=== PATIENT | female | born 1930 | race Caucasian/White ===

== ENCOUNTER → 2016-05-04 | Outpatient (CLI) | payer MEDICARE ==
[~2016-05-04] MED LIST: AMLO5TAB2 PO; ASPI1TAB69 PO; ATEN25TA PO; LISI40TA PO; OXYC1TAB63 PO; SIMV40TA PO
[2016-05-04 15:37] LABS: AUTOMATED NEUTROPHIL # 5.3 TH/MM3 (1.8-7.7); BASOPHIL % 0.6 % (0.0-2.0); EOSINOPHIL # 0.1 TH/MM3 (0-0.4); EOSINOPHIL % 1.6 % (0.0-4.0); HEMATOCRIT 44.3 % (35.0-46.0); HEMO FLAGS DIFF FINAL; LYMPH % 21.9 % (9.0-44.0); LYMPHOCYTE # 1.8 TH/MM3 (1.0-4.8); MEAN CELL VOLUME 91.6 FL (80.0-100.0); MEAN CORPUSCULAR HEMOGLOBIN 31.1 PG (27.0-34.0); MEAN CORPUSCULAR HGB CONC 33.9 % (32.0-36.0); MONO % 11.5 % (0.0-8.0); NEUT % 64.4 % (16.0-70.0); PLATELET COUNT 249 TH/MM3 (150-450); RED BLOOD COUNT 4.83 MIL/MM3 (4.00-5.30); RED CELL DISTRIBUTION WIDTH 13.4 % (11.6-17.2); WHITE BLOOD COUNT 8.2 TH/MM3 (4.0-11.0)
[2016-05-04 16:13] LABS: APTT (PATIENT) 28.5 SEC (24.3-30.1); PROTHROMBIN TIME - PATIENT 10.9 SEC (9.8-11.6)
[2016-05-04 16:14] LABS: ALKALINE PHOSPHATASE 65 U/L (45-117); ALT (GPT) 29 U/L (10-53); ANION GAP 8 MEQ/L (5-15); AST (GOT) 29 U/L (15-37); BICARBONATE 28.2 MEQ/L (21.0-32.0); BLOOD UREA NITROGEN 11 MG/DL (7-18); CHLORIDE 105 MEQ/L (98-107); GLOMERULAR FILTRATION RATE 69 ML/MIN (>89); GLUCOSE,FASTING 104 MG/DL (74-99); POTASSIUM 3.8 MEQ/L (3.5-5.1); SODIUM (NA) 141 MEQ/L (136-145); TOTAL BILIRUBIN ADULT 0.5 MG/DL (0.2-1.0)
--- NOTE | 2016-05-04 16:56 | RADRPT ---
EXAM DATE/TIME: 05/04/2016 16:15 [place] COMPARISON: No previous studies available for comparison. INDICATIONS : Evaluate for pneumonia, pneumothorax or communicable disease. Pre op hysterectomy. MEDICAL HISTORY : None. SURGICAL HISTORY : Appendectomy. ENCOUNTER: Initial ACUITY: 1 day PAIN SCORE: 0/10 LOCATION: Bilateral chest FINDINGS: The exam demonstrates chronic interstitial changes. The lungs are otherwise clear. There is no pleura l effusion. The bony structures are intact. CONCLUSION: 1. Chronic interstitial changes. No acute abnormality. Nic Leonardo MD on May 04, 2016 at 16:38 Board Certified Radiologist. This report was verified electronically.
--- NOTE | 2016-05-05 12:27 | EKG ---
Date Performed: 05/04/2016 Time Performed: 15:45:42 PTAGE: 85 years EKG: Sinus rhythm ATYPICAL ECG NO PREVIOUS TRACING DOCTOR: Chandra Dave Interpretating Date/Time 05/05/2016 12:22:44
== END ==
LOC: CPRE 15:12
PROVIDERS: ATTEND Obstetrics & Gynecology Gynecologic Oncology
DX: Z01.812 Encounter for preprocedural laboratory examination (principal); Z01.811 Encounter for preprocedural respiratory examination; Z01.810 Encounter for preprocedural cardiovascular examination; N85.9 Noninflammatory disorder of uterus, unspecified
CPT/HCPCS: 36415; 71020; 80053; 82378; 85025; 85610; 85730; 86304; 93005

== ENCOUNTER 2016-05-10 05:48 | Inpatient (IN) | payer MEDICARE ==
[~2016-05-10] VITALS: Ht 154.9 cm; Wt 66.1 kg
[~2016-05-10 05:48] MED LIST changes: -OXYC1TAB63 PO
[2016-05-10] MEDS ORDERED: SODIUM CHLORID 0.9% 500 ML IV SCH (06:15)
[2016-05-10] MEDS ORDERED: INSULIN HUMAN REGULAR 1,000 UNITS/10 ML VIAL SQ PRN (06:15)
[2016-05-10] MEDS ORDERED: SODIUM CHLORIDE FLUSH PRN IVF (06:15)
[2016-05-10] MEDS ORDERED: HEPARIN SODIUM - SQ 10,000 UNITS/ML VIAL SQ SCH (06:15)
[2016-05-10] MEDS ORDERED: LACTATED RINGER'S 1000 ML IV SCH (06:15)
[2016-05-10] MEDS ORDERED: METOPROLOL TARTRATE 25 MG TAB PO PRN (06:15)
[2016-05-10 06:39] VITALS: BP 134/62; PULSE 75; RESP 18; TEMP 98.3; O2SAT 94
[2016-05-10] MEDS ORDERED: SODIUM CHLORIDE 0.9% INJ 100 ML ONE (06:42)
[2016-05-10] MEDS ORDERED: ceFAZolin INJ 1,000 MG VIAL ONE (06:42)
[2016-05-10] MEDS ORDERED: ceFAZolin 1,000 MG/NS 100 ML IV SCH ×2 (06:45)
[2016-05-10] MEDS: LIDOCAINE 1%/EPINEPHrine 1:100,000 SOLN 20 ML VIAL ONE ×2 (06:54→08:18)
[2016-05-10] MEDS ORDERED: METHYLENE BLUE 10 MG/ML VIAL ONE ×2 (06:55→06:57)
[2016-05-10] MEDS ORDERED: ACETAMINOPHEN 1000 MG/100 ML VIAL IV ONE (07:02)
[2016-05-10] MEDS ORDERED: SUGAMMADEX SODIUM 200 MG/2 ML VIAL IV PUSH ONE ×2 (07:03)
[2016-05-10] MEDS ORDERED: DEXAMETHASONE SOD PHOS 4 MG/ML VIAL ONE (07:21)
[2016-05-10] MEDS ORDERED: MIDAZOLAM HCL 2 MG/2 ML VIAL ONE (07:21)
[2016-05-10] MEDS ORDERED: ARTIFICIAL TEARS OPTH OINT 3.5 APPLIC/3.5 GM TUBO ONE (07:47)
[2016-05-10] MEDS ORDERED: SODIUM CHLORIDE FLUSH BID IVF SCH (09:00)
[2016-05-10] MEDS ORDERED: MORPHINE SULFATE 30 MG/30 ML PCA IV SCH (10:45)
[2016-05-10] MEDS ORDERED: ONDANSETRON HCL 4 MG/2 ML VIAL IVP PRN (10:45)
[2016-05-10] MEDS ORDERED: oxyCODONE/ACETAMINOPHEN 5 MG/325 MG TAB PO PRN ×2 (10:45)
[2016-05-10] MEDS ORDERED: diphenhydrAMINE HCL 25 MG CAP PO PRN (10:45)
[2016-05-10] MEDS ORDERED: LORazepam 0.5 MG TAB PO PRN (10:45)
[2016-05-10] MEDS ORDERED: NALOXONE HCL 0.4 MG/ML AMP IV PRN (10:45)
[2016-05-10] MEDS ORDERED: SODIUM CHLORIDE 0.9% FLUSH 5 ML FLUSH FLUSH PRN (10:45)
[2016-05-10] MEDS ORDERED: fentaNYL CITRATE 250 MCG/5 ML AMP ONE (11:18)
[2016-05-10] MEDS: D5-1/2 NS + KCL 20 MEQ INJ 1,000 ML IV SCH ×2 (11:30→20:25)
[2016-05-10] MEDS ORDERED: *morphine SULFATE 8 MG/ML PERIprocedure ONLY ONE ×3 (11:30→12:16)
[2016-05-10] MEDS ORDERED: DO NOT ADM ANY ANTICOAGULANT DRUGS XX PRN (11:30)
[2016-05-10] MEDS ORDERED: ONDANSETRON HCL 4 MG/2 ML VIAL IV PUSH ONE (12:00)
[2016-05-10] MEDS ORDERED: LACTATED RINGER'S 1000 ML INJ 2,000 ML IV ONE (12:00)
[2016-05-10] MEDS ORDERED: SODIUM CHLORID 0.9% 500 ML INJ 500 ML IV ONE (12:00)
[2016-05-10] MEDS ORDERED: NORMOSOL R INJ 1,000 ML IV ONE (12:00)
[2016-05-10] MEDS ORDERED: ePHEDrine/NS 50 MG/5 ML SYR IV ONE (12:00)
[2016-05-10] MEDS ORDERED: SODIUM CHLOR 0.9% 250 ML INJ 250 ML IV ONE (12:00)
[2016-05-10] MEDS ORDERED: PROPOFOL 200 MG/20 ML AMP IV ONE (12:00)
[2016-05-10] MEDS: KETOROLAC TROMETHAMINE 30 MG/ML (IVP) VIAL IVP SCH ×2 (12:40→17:50)
[2016-05-10 13:40] VITALS: BP 131/76; PULSE 94; RESP 20; TEMP 96.3; O2SAT 98
[2016-05-10] MEDS: VANCOMYCIN 500 MG VIAL (FOR ORAL USE ONLY) PO SCH ×2 (14:00→20:26)
[2016-05-10] MEDS: PCA - TOTAL MG MORPHINE DELIVERED PER SHIFT SCH ×2 (14:00→22:00)
--- NOTE | 2016-05-10 14:09 | MP ---
cc: RIGO JOSEPH M.D., KELLY L. MD DATE OF SURGERY: 05/08/2016 PREOPERATIVE DIAGNOSIS 1. Pelvic mass. 2. Elevated CA-125. POSTOPERATIVE DIAGNOSIS Bilateral ovarian masses (adenocarcinoma). Elevated CA-125. PROCEDURE Examination under anesthesia, exploratory laparotomy, total abdominal hysterectomy, bilateral salpingo-oophorectomy (with resection of approximately 22 cm right complex ovarian mass) and approximately 4 centimeter left ovarian mass, omentectomy, intraperitoneal biopsies, peritoneal washings. 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 ANESTHESIA General endotracheal anesthesia. ESTIMATED BLOOD LOSS 200 ccs. IV FLUIDS 2000 ccs. URINE OUTPUT 500 ccs. HISTORY 85-year-old female found on exam and imaging to have a large complex ovarian mass thought to be a probable ovarian origin and whereas there was a large fluid component, there was also significant solid component making it complex in nature. On imaging the capsule appeared intact. There was no ascites, adenopathy, nodularity or other changes detected on preop imaging. She has been counseled regarding these findings and whereas she is in favor of minimally invasive surgery and we have discussed those potential advantages, she understands that there is a reasonably high chance we will perform the surgery via open laparotomy and she is seen again in preop holding area where these issues are again discussed. FINDINGS Upon review of her imaging and examination under anesthesia, there was mobility to the mass, however, it was clear that the size of it was such there was no way to deliver it laparoscopically without draining the mass, taking into account her CA-125 was elevated at 124, her age of 85 years of age, reasonable chance this could represent a malignancy, there was no way to remove the mass without draining the liquid component and running the risk of spill of what appeared to be an otherwise intact capsule. Accordingly decision was made to proceed with laparotomy and at the time of laparotomy the right ovary is replaced by a complex mass approximately 22 cm, mobile, essentially no adhesions and once removed the left ovary was noted to be irregular, complex and large approximately 4 cm in the posterior cul-de-sac. The uterus grossly appeared normal. There were no appreciably enlarged pelvic or para-aortic lymph nodes. There were no peritoneal implants. The appendix appeared to be surgically absent. The liver diaphragm edges were smooth. The omentum grossly appeared normal. Large and small bowel and adjacent mesentery of that tissue appeared normal. She had significant diverticulum without evidence of diverticulitis. 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 They did open the uterus and inspect the uterus which appeared normal and does not appear to be cancer in the endometrium. At the completion of the case essentially all grossly visible tumor had been resected because the tumor was confined to encapsulated ovaries and no other visible or palpable evidence of metastatic disease. PROCEDURE The patient taken to the operating room and placed in dorsal lithotomy position, after general endotracheal anesthesia was administered, time-out was undertaken. The patient was identified by sight recognition, hospital ID [email or web address] and the proposed procedure was reviewed and confirmed. She was carefully positioned in padded Bob stirrups. Left arm was padded and secured to the side. Right arm was positioned out. All positioning was checked, properly aligned with no malalignments or pressure points. She was prepped and draped in sterile fashion. The orogastric airway was placed in the stomach on suction. Gonzalez catheter had been placed in the bladder. Midline incision was made from the umbilicus to the symphysis, carried down to the level of the fascia. The fascia was entered. The rectus muscles were in the midline. The peritoneal cavity was entered. Peritoneal washings were obtained for cytology. A large right ovarian mass occupied the pelvis and extended above the umbilicus. With manipulation the mass was able to be delivered through the surgical incision. Right round ligament was doubly suture ligated, transected. Anterior and posterior leafs of the broad ligament were opened. The right ureter was identified. The right infundibulopelvic ligament was isolated. The intervening peritoneum was opened. The infundibulopelvic ligament was doubly clamped, cut and doubly suture ligated. Posterior peritoneum was opened along the right side of the uterus and cervix and the right vesicouterine peritoneum was dissected off the lower uterine segment and cervix and right uterine vessels were skeletonized and the right utero-ovarian ligament was isolated. The right utero-ovarian ligament was now clamped, cut and doubly suture ligated, thereby removing the right ovarian mass which were sent for frozen section analysis. Attention was directed toward the left side. After the Bookwalter retractor was established and set up, moist lap pads were used to retract the bowel and the retractor blades were gently placed circumferentially around the abdominal wall. The left round ligament was doubly suture ligated, transected. The anterior and posterior leafs of the broad ligament were opened, left ureter was identified. The left infundibulopelvic ligament was isolated. The infundibulopelvic ligament was doubly clamped, cut and doubly suture ligated. Posterior peritoneum was opened along the left side of the uterus and cervix. The left vesicouterine peritoneum was dissected off the lower uterine segment and cervix. The left uterine vessels were skeletonized and the left tube and ovary were left in situ and attached to the uterine specimen. Uterine vessels were now clamped, cut and suture ligated bilaterally as were the cardinal, paracervical and uterosacral ligaments until curved Morales clamps could be placed below the cervix at the lateral vaginal angles. Sharp dissection was used to separate the cervix from the upper vagina. The specimen was inspected and the entire cervix was removed and the specimen included uterus, cervix and the attached left tube and ovary. Vaginal cuff was supported at the corners with [id number] sutures through the edge of the uterosacral ligament, posterior peritoneum. The vaginal cuff was closed with interrupted [id number] 0 Vicryl sutures which rendered the closure completely hemostatic. Pelvis was irrigated. Small bleeders were rendered hemostatic with bipolar cautery, 3-0 Vicryl suture. There was a good margin between the bladder edge and the vaginal cuff. After irrigation to assist in continued hemostasis, Chandler hemostatic powder was placed across the vaginal cuff and lateral pelvic sidewalls. Again inspected, there was no appreciably enlarged lymph nodes, no adenopathy. Noted were quite large cystic changes to the kidneys bilaterally which were noted preoperatively on imaging but were not thought related to the ovarian neoplasm and had benign characteristics on imaging. The abdomen and pelvis were again explored with findings as described above. The omentum grossly appeared normal and the omental resection was started up near the splenic flexure. Vascular attachments were isolated, clamped, cut and suture ligated with 2-0 Vicryl sutures in a stepwise fashion, continuing the dissection along the transverse colon toward the hepatic flexure in a similar fashion until the bulk of the infracolic omentum was removed, sent for permanent histopathologic analysis. Random peritoneal biopsies were taken from the pelvis and the abdomen with sharp dissection and/or cautery and were collected and sent for permanent collectively as peritoneal biopsies. The anatomy was again inspected. There was no adenopathy and it was felt that the morbidity of lymphadenectomy in an 85-year-old woman to look for microscopic metastatic disease may exceed benefit and there was no grossly visible or palpable disease that remained and it was felt that all reasonable surgical objectives had been completed. The lap pads were removed. The Bookwalter retractor was disassembled. Visual and manual inspection confirmed there were no remaining foreign objects in the peritoneal cavity. Preliminary counts were correct. The abdominal wall was closed with 0 looped PDS in a running continuous modified Smead-M[place] fashion, starting at the apices of the incision, meeting in the midpoint where sutures were tied. Subcutaneous tissue was irrigated. Ronan's fascia reapproximated with 2-0 Vicryl sutures and then a 3-0 Vicryl subcuticular was used to close the skin edges. Steri-Strips and dry sterile dressing was placed over the incision. Preliminary and final counts were correct. Pelvic exam confirmed there were no remaining foreign objects in the vagina. She was returned to dorsal supine position and was pending reversal of anesthesia when I left the operating room to precede her to the Post Anesthesia Care Unit. MD MICHOACANO Acosta/ROLO /11:19 AM /1:40 PM
--- NOTE | 2016-05-10 15:50 | PD.ONC.PN ---
Subjective Subjective Remarks Post op check pt doing well, states pain is controlled with OIL PIPELINE DISPATCHER at this time denies any n/v OIL PIPELINE DISPATCHER at bedside and gave instructions for use. at bedside Objective Data Date Time Temp Pulse Resp B/P Pulse Ox O2 Delivery O2 Flow Rate FiO2 05/10/16 14:18 18 05/10/16 14:00 16 05/10/16 13:40 96.3 94 20 131/76 98 05/10/16 13:40 18 05/10/16 12:30 97.8 88 15 146/73 97 Nasal Cannula 3 05/10/16 12:15 85 15 148/82 97 Nasal Cannula 3 05/10/16 12:00 85 13 144/77 97 Nasal Cannula 3 05/10/16 11:45 79 13 138/68 96 Nasal Cannula 3 05/10/16 11:45 13 05/10/16 11:30 76 13 140/75 95 Nasal Cannula 3 05/10/16 11:15 82 15 144/72 95 Nasal Cannula 3 05/10/16 11:04 97.8 90 15 149/83 98 Nasal Cannula 3 05/10/16 06:39 98.3 75 18 134/62 94 05/10/16 05/10/16 05/10/16 07:00 15:00 23:00 Intake Total 3050 ml Output Total 950 ml Balance 2100 ml Laboratory Results Laboratory Tests Test 05/10/16 06:31 Blood Type O POSITIVE Antibody Screen NEGATIVE Crossmatch Leukocyte-Reduced Red Blood Cells Blood Bank Comment Administered Medications Medications (Trade) Dose Ordered Sig/Sherly Route PRN Reason Start Time Stop Time Status Last Admin Dose Admin Potassium Chloride/Dextrose/ Sod Cl (D5-1/2 NS + KCl 20 Meq Inj) 1,000 ml @ 100 mls/hr Q10H IV 05/10/16 12:00 05/10/16 11:30 Ketorolac Tromethamine (Toradol Inj) 15 mg Q6H IVP 05/10/16 12:00 05/12/16 06:01 05/10/16 12:40 Morphine Sulfate (Morphine 1 Mg/ ml OIL PIPELINE DISPATCHER) 30 mg UNSCH IV 05/10/16 10:45 05/10/16 11:45 OIL PIPELINE DISPATCHER Dosage Infused (Pha) 1 Q8HR .XX 05/10/16 14:00 05/10/16 14:00 Vancomycin HCl (VANCOMYCIN for oral use only) 125 mg Q6H PO 05/10/16 14:00 05/10/16 14:00 Objective Remarks GENERAL: frail, well-developed patient. SKIN: Warm and dry. HEAD: Normocephalic. EYES: No scleral icterus. No injection or drainage. PPP CARDIOVASCULAR: Regular rate and rhythm without murmurs. RESPIRATORY: Breath sounds equal bilaterally. No accessory muscle use. GASTROINTESTINAL: dressing is C/D/I EXTREMITIES: TEDs and SCDs MUSCULOSKELETAL: Adequate muscle tone. NEUROLOGICAL: No obvious focal deficit. Awake, alert, and oriented x3. PSYCHIATRIC: Appropriate mood and affect; insight and judgment normal. Assessment/Plan Problem List: (1) Ovarian cancer, bilateral Status: Acute Plan: final pathology is pending frozen section shown adenocarcinoma treatment recommendations based on final pathology (2) Post-operative state Status: Acute Plan: s/p XLap hyst with BSO and resection of pelvic masses, omentectomy post op orders in chart clear liquid diet OIL PIPELINE DISPATCHER pump for pain instructions given on use of IS (at bedside) remove esteban on POD #2 anticipate discharge aprox 2-[address] Benjamin is in agreement with this plan of care. Bull Hensley May 10, 2016 15:50
[2016-05-10 16:00] VITALS: BP 121/66; PULSE 88; RESP 16; TEMP 96.2; O2SAT 95
[2016-05-10 20:00] VITALS: BP 134/71; PULSE 87; RESP 16; TEMP 96.2; O2SAT 95
[2016-05-10] MEDS: PRAVASTATIN SOD 80 MG TAB PO SCH (20:25)
[2016-05-10] MEDS: amLODIPine BESYLATE 5 MG TAB PO SCH (20:25)
[2016-05-10] MEDS: LISINOPRIL 20 MG TAB PO SCH (20:25)
[2016-05-10] MEDS: SODIUM CHLORIDE 0.9% FLUSH 5 ML FLUSH FLUSH SCH (20:26)
[2016-05-10] MEDS ORDERED: FIDAXOMICIN 200 MG TAB PO SCH (21:00)
--- NOTE | 2016-05-10 21:52 | PD.CONS ---
HPI History of Present Illness This is a 85 year old female who had total hysterectomy with BSO earlier today for an ovarian mass which under frozen section showed adenocarcinoma apparently the patient for the past 6 weeks is been battling was sounds like C. difficile infection she tells me that she does not and did not have diarrhea she denies any abdominal pain denies any nausea vomiting denies any fever or chills she received several courses of antibiotics initially she was on Flagyl for 10 days then on Vanco for 10 days then on a combination for a few days and subsequently she had to undergo the surgery the patient is currently comfortable in bed and has no complaints all the testing and treatment for the C. difficile has been on an outpatient basis [facility] Past Medical History Hyperlipidemia and hypertension Past Surgical History Earlier today she had a total abdominal hysterectomy with BSO Coded Allergies: Augmentin (Verified Allergy, Mild, Rash, 05/10/16) Uncoded Allergies: nuts (Allergy, Severe, Swelling, 05/04/16) Medications Current Medications Lactated Ringer's 1,000 ml @ 30 mls/hr Q24H IV Last administered on 05/10/16 06:30; Start 05/10/16 at 06:15; Stop 05/10/16 at 11:51; Status DC Sodium Chloride (NS 500 ml Inj) 500 ml @ 30 mls/hr [id number] IV ; Start 05/10/16 at 06:15; Stop 05/11/16 at 06:14 Insulin Human Regular (NovoLIN R INJ) See Protocol Table ... UNSCH X1 PRN SQ SEE PROTOCOL; Start 05/10/16 at 06:15; Stop 05/11/16 at 06:14 Metoprolol Tartrate (Lopressor) 25 mg UNSCH X1 PRN PO SEE LABEL COMMENTS; Start 05/10/16 at 06:15; Stop 05/11/16 at 06:14 Heparin Sodium (Porcine) (Heparin Inj) 5,000 units DIRECTOR PAYER SQ Last administered on 05/10/16 06:45; Start 05/10/16 at 06:15; Stop 05/12/16 at 06:14 IV Flush (NS Flush) 2 ml BID IVF ; Start 05/10/16 at 09:00; Stop 05/10/16 at 11:53 ; Status DC IV Flush 2 ml 2 ml UNSCH PRN IVF FLUSH AFTER USING IV ACCESS; Start 05/10/16 at 06:15; Stop 05/10/16 at 11:53; Status DC Cefazolin Sodium/ Sodium Chloride (Ancef Inj/NS Inj) 100 ml @ 200 mls/hr DIRECTOR PAYER IV Last administered on 05/10/16t 06:48; Start 05/10/16 at 06:45; Stop 05/13 at 06:44 Cefazolin Sodium 1000 mg 1,000 mg STK-MED ONCE .ROUTE ; Start 05/10/16 at 06:42; Stop 05/10/16 at 06:46; Status DC Sodium Chloride (NS Inj) 100 ml @ As Directed STK-MED ONCE .ROUTE ; Start at 06:42; Stop 05/10/16 at 06:46; Status DC Lidocaine/ Epinephrine (Xylocaine-Epi 1%-1:100,000 Inj) 20 ml STK-MED ONCE .ROUTE ; Start 05/10/16 at 06:54; Stop 05/10/16 at 07:04; Status DC Methylene Blue (Methylene Blue Inj) 10 mg STK-MED ONCE .ROUTE ; Start 05/10/16 at 06:55; Stop 05/10/16 at 07:04; Status DC Methylene Blue (Methylene Blue Inj) 10 mg STK-MED ONCE .ROUTE ; Start 05/10/16 at 06:57; Stop 05/10/16 at 07:04; Status DC Acetaminophen (Ofirmev Inj) 1,000 mg STK-MED ONCE IV ; Start 05/10/16 at 07:02; Stop 05/10/16 at 07:05; Status DC Sugammadex Sodium (Bridion Inj) 200 mg STK-MED ONCE IV PUSH ; Start 05/10/16 at 07:03; Stop 05/10/16 at 07:05; Status DC Midazolam HCl (Versed Inj) 2 mg STK-MED ONCE .ROUTE ; Start 05/10/16 at 07:21; Stop 05/10/16 at 07:23; Status DC Dexamethasone Sodium Phosphate (Decadron Inj) 4 mg STK-MED ONCE .ROUTE ; Start 05/10/16 at 07:21; Stop 05/10/16 at 07:23; Status DC Artificial Tears (Lacrilube Opht Oint) 3.5 applic STK-MED ONCE .ROUTE ; Start at 07:47; Stop 05/10/16 at 07:58; Status DC Amlodipine Besylate (Norvasc) 5 mg HS PO Last administered on 05/10/16 20:25; Start 05/10/16 at 21:00 Atenolol (Tenormin) 25 mg DAILY PO ; Start 05/11/16 at 09:00 Lisinopril (Prinivil) 40 mg BID PO Last administered on 05/10/16 20:25; Start 05/10/16 at 21:00 Pravastatin Sodium 80 mg 80 mg HS PO Last administered on 05/10/16 20:25; Start 05/10/16 at 21:00 Potassium Chloride/Dextrose/ Sod Cl (D5-1/2 NS + KCl 20 Meq Inj) 1,000 ml @ 100 mls/hr Q10H IV Last administered on 05/10/16 20:25; Start 05/10/16 at 12:00 IV Flush (NS Flush) 2 ml UNSCH PRN FLUSH FLUSH AFTER USING IV ACCESS; Start 05/10/16 at 10:45 IV Flush (NS Flush) 2 ml BID FLUSH Last administered on 05/10/16 20:26; Start 05/10/16 at 21:00 Ketorolac Tromethamine (Toradol Inj) 15 mg Q6H IVP Last administered on 17:50; Start 05/10/16 at 12:00; Stop 05/12/16 at 06:01 Oxycodone/ Acetaminophen (Percocet 5-325 Mg) 1 tab Q4H PRN PO PAIN SCALE 1 TO 5; Start 05/10/16 at 10:45 Oxycodone/ Acetaminophen (Percocet 5-325 Mg) 2 tab Q4H PRN PO PAIN SCALE 6 TO 10; Start 05/10/16 at 10:45 Diphenhydramine HCl (Benadryl) 25 mg Q6H PRN PO ITCHING; Start 05/10/16 at 10:45 Ondansetron HCl (Zofran Inj) 4 mg Q6H PRN IVP NAUSEA OR VOMITING; Start at 10:45 Lorazepam (Ativan) 0.25 mg Q8H PRN PO ANXIETY; Start 05/10/16 at 10:45 Naloxone HCl (Narcan Inj) 0.4 mg UNSCH PRN IV RESPIRATORY RATE LESS THAN 10; Start 05/10/16 at 10:45 Morphine Sulfate (Morphine 1 Mg/ ml MEDICATION SPECIALIST) 30 mg UNSCH IV Last administered on 11:45; Start 05/10/16 at 10:45 MEDICATION SPECIALIST Dosage Infused (Pha) 1 Q8HR .XX Last administered on 05/10/16 14:00; Start 05/10/16 at 14:00 Fidaxomicin (Dificid) 200 mg BID PO ; Start 05/10/16 at 21:00; Stop 05/10/16 at 21 :00; Status DC Fentanyl Citrate (fentaNYL INJ) 250 mcg STK-MED ONCE .ROUTE ; Start 05/10/16 at 11:18; Stop 05/10/16 at 11:19; Status DC Fentanyl Citrate (fentaNYL INJ) 100 mcg STK-MED ONCE .ROUTE ; Start 05/10/16 at 11:18; Stop 05/10/16 at 11:19; Status DC Miscellaneous Information ALL NURSING DEPARTME... UNSCH PRN XX SEE LABEL COMMENTS; Start 05/10/16 at 11:30; Stop 05/11/16 at 11:29 Morphine Sulfate (*morphine INJ PERIprocedure ONLY) 8 mg STK-MED ONCE .ROUTE Last administered on 05/10/16 11:31; Start 05/10/16 at 11:30; Stop 05/10/16 at 11: 31; Status DC Morphine Sulfate (*morphine INJ PERIprocedure ONLY) 8 mg STK-MED ONCE .ROUTE Last administered on 05/10/16 11:52; Start 05/10/16 at 11:49; Stop 05/10/16 at 11: 50; Status DC Morphine Sulfate (*morphine INJ PERIprocedure ONLY) 8 mg STK-MED ONCE .ROUTE Last administered on 05/10/16 12:20; Start 05/10/16 at 12:16; Stop 05/10/16 at 12: 17; Status DC Vancomycin HCl (VANCOMYCIN for oral use only) 125 mg Q6H PO Last administered on 05/10/16 20:26; Start 05/10/16 at 14:00 Family History Noncontributory Social History Negative Review of Systems ROS Review of systems Patient denies any headache dizziness blurry vision, denies any chest pain shortness of breath cough fever chills, Denies any palpitations or fatigue denies any polyuria dysuria hematuria, denies any numbness tingling or weakness, denies any skin rash pruritus or jaundice, denies any easy bruising or bleeding tendency, denies any recent change in mood GI Exam Vitals I&O Vital Signs Date Time Temp Pulse Resp B/P Pulse Ox O2 Delivery O2 Flow Rate FiO2 05/10/16 20:00 96.2 87 16 134/71 95 05/10/16 16:00 96.2 88 16 121/66 95 05/10/16 14:18 18 05/10/16 14:00 16 05/10/16 13:40 96.3 94 20 131/76 98 05/10/16 13:40 18 05/10/16 12:30 97.8 88 15 146/73 97 Nasal Cannula 3 05/10/16 12:15 85 15 148/82 97 Nasal Cannula 3 05/10/16 12:00 85 13 144/77 97 Nasal Cannula 3 05/10/16 11:45 79 13 138/68 96 Nasal Cannula 3 05/10/16 11:45 13 05/10/16 11:30 76 13 140/75 95 Nasal Cannula 3 05/10/16 11:15 82 15 144/72 95 Nasal Cannula 3 05/10/16 11:04 97.8 90 15 149/83 98 Nasal Cannula 3 05/10/16 06:39 98.3 75 18 134/62 94 I/O 05/09/16 05/09/16 05/09/16 05/10/16 05/10/16 05/10/16 07:00 15:00 23:00 07:00 15:00 23:00 Intake Total 3050 ml Output Total 950 ml Balance 2100 ml Intake IV Total 1050 ml Other 2000 ml Output Urine Total 750 ml Estimated Blood Loss 200 ml Imaging Outpatient imaging had shown pelvic mass Laboratory Test 05/10/16 06:31 Blood Type O POSITIVE Antibody Screen NEGATIVE Crossmatch Leukocyte-Reduced Red Blood Cells Blood Bank Comment Physical Examination HEENT: Pupils round and reactive to light; normocephalic; atraumatic; no jaundice. Throat is clear. NECK: Neck is supple, no JVD, no lymphadenopathy. CHEST: Chest is clear to auscultation and percussion. CARDIAC: Regular rate and rhythm with no murmur gallop or rubs. ABDOMEN: Soft, nondistended, nontender; no hepatosplenomegaly; bowel sounds are present in all four quadrants. EXTREMITIES: No clubbing, cyanosis, or edema. SKIN: Normal; no rash; no jaundice. MOTOR VEHICLE LIGHT ASSEMBLER: No focal deficits; alert and oriented times three. Assessment and Plan Plan Patient with prior C. difficile positive stool tests but clinically does not appear to have any active C. difficile colitis At this point the patient was started on vancomycin but am not sure we need to continue this for very long at this point we'll obtain stool studies but again I doubt this will show anything as she has solid stools at this point Further recommendations shall depend on her hospital course Consideration can be made for sigmoidoscopy to further assess for C. difficile John Sims MD May 10, 2016 21:52
[2016-05-11] VITALS (9 sets, daily range): BP systolic 146–176; BP diastolic 65–75; PULSE 80–92; RESP 18–20; TEMP 96.5–97.8; O2SAT 90–98
[2016-05-11] MEDS: D5-1/2 NS + KCL 20 MEQ INJ 1,000 ML IV SCH ×2 (04:57→18:06)
[2016-05-11] MEDS: VANCOMYCIN 500 MG VIAL (FOR ORAL USE ONLY) PO SCH ×4 (04:57→20:32)
[2016-05-11] MEDS: KETOROLAC TROMETHAMINE 30 MG/ML (IVP) VIAL IVP SCH ×4 (04:57→18:06)
[2016-05-11] MEDS: PCA - TOTAL MG MORPHINE DELIVERED PER SHIFT SCH ×3 (06:00→20:37)
[2016-05-11 07:11] LABS: BASOPHIL # 0.1 TH/MM3 (0-0.2); BASOPHIL % 0.5 % (0.0-2.0); EOSINOPHIL % 0.1 % (0.0-4.0); HEMO FLAGS DIFF FINAL; LYMPH % 13.6 % (9.0-44.0); LYMPHOCYTE # 1.4 TH/MM3 (1.0-4.8); MEAN CELL VOLUME 91.7 FL (80.0-100.0); MEAN CORPUSCULAR HEMOGLOBIN 30.5 PG (27.0-34.0); MEAN CORPUSCULAR HGB CONC 33.3 % (32.0-36.0); MONO % 15.8 % (0.0-8.0); PLATELET COUNT 217 TH/MM3 (150-450); RED BLOOD COUNT 4.14 MIL/MM3 (4.00-5.30); RED CELL DISTRIBUTION WIDTH 13.4 % (11.6-17.2); WHITE BLOOD COUNT 10.1 TH/MM3 (4.0-11.0)
[2016-05-11 07:42] LABS: ALKALINE PHOSPHATASE 46 U/L (45-117); ALT (GPT) 20 U/L (10-53); ANION GAP 7 MEQ/L (5-15); AST (GOT) 15 U/L (15-37); BICARBONATE 26.4 MEQ/L (21.0-32.0); BLOOD UREA NITROGEN 5 MG/DL (7-18); CHLORIDE 108 MEQ/L (98-107); GLOMERULAR FILTRATION RATE 85 ML/MIN (>89); POTASSIUM 3.7 MEQ/L (3.5-5.1); SODIUM (NA) 141 MEQ/L (136-145); TOTAL BILIRUBIN ADULT 0.4 MG/DL (0.2-1.0)
[2016-05-11] MEDS: SODIUM CHLORIDE 0.9% FLUSH 5 ML FLUSH FLUSH SCH ×2 (08:04→20:32)
[2016-05-11] MEDS: ATENOLOL 25 MG TAB PO SCH (09:10)
[2016-05-11] MEDS: LISINOPRIL 20 MG TAB PO SCH ×2 (09:10→20:33)
--- NOTE | 2016-05-11 14:15 | HHI.GIFU ---
Subjective Remarks Resting in chair. States she is doing well. No abdominal pain. No diarrhea. States she has been having formed stool. (Alison Cantor) Objective Vitals I&O Vital Signs Date Time Temp Pulse Resp B/P Pulse Ox O2 Delivery O2 Flow Rate FiO2 05/11/16 09:08 96.5 89 18 176/75 98 05/11/16 07:35 94 Nasal Cannula 2.00 05/11/16 06:00 18 05/11/16 04:30 96.9 92 18 161/69 96 05/11/16 00:00 96.6 80 18 146/66 96 05/10/16 22:00 18 05/10/16 20:00 96.2 87 16 134/71 95 05/10/16 16:00 96.2 88 16 121/66 95 05/10/16 14:18 18 I/O 05/10/16 05/10/16 05/10/16 05/11/16 05/11/16 05/11/16 07:00 15:00 23:00 07:00 15:00 23:00 Intake Total 3050 ml 574 ml Output Total 950 ml 1100 ml 2100 ml Balance 2100 ml -1100 ml 574 ml -2100 ml Intake IV Total 1050 ml 574 ml Other 2000 ml Output Urine Total 750 ml 1100 ml 2100 ml Estimated Blood Loss 200 ml Laboratory Laboratory Tests Test 05/11/16 06:44 White Blood Count 10.1 Red Blood Count 4.14 Hemoglobin 12.6 Hematocrit 38.0 Mean Corpuscular Volume 91.7 Mean Corpuscular Hemoglobin 30.5 Mean Corpuscular Hemoglobin 33.3 Concent Red Cell Distribution Width 13.4 Platelet Count 217 Mean Platelet Volume 8.8 Neutrophils (%) (Auto) 70.0 Lymphocytes (%) (Auto) 13.6 Monocytes (%) (Auto) 15.8 Eosinophils (%) (Auto) 0.1 Basophils (%) (Auto) 0.5 Neutrophils # (Auto) 7.0 Lymphocytes # (Auto) 1.4 Monocytes # (Auto) 1.6 Eosinophils # (Auto) 0.0 Basophils # (Auto) 0.1 CBC Comment DIFF FINAL Differential Comment Sodium Level 141 Potassium Level 3.7 Chloride Level 108 Carbon Dioxide Level 26.4 Anion Gap 7 Blood Urea Nitrogen 5 Creatinine 0.66 Estimat Glomerular Filtration 85 Rate Random Glucose 127 Calcium Level 8.1 Total Bilirubin 0.4 Aspartate Amino Transf 15 (AST/SGOT) Alanine Aminotransferase 20 (ALT/SGPT) Alkaline Phosphatase 46 Total Protein 6.3 Albumin 3.1 Physical Exam HEENT: Normocephalic; atraumatic; no jaundice. CHEST: CTA CARDIAC: RRR ABDOMEN: Soft, nondistended, nontender; no hepatosplenomegaly; bowel sounds are present in all four quadrants. Drsg d/i EXTREMITIES: No clubbing, cyanosis, or edema. SKIN: Normal; no rash; no jaundice. TECHNICAL SPECIALIST CYTOGENETICS: No focal deficits; alert and oriented times three. (Alison Cantor) Assessment and Plan Plan ASSESSMENT: - Pt with recent persistent CDiff infection. She was treated with flagyl/oral vancomycin as outpatient. She is currently not having any diarrhea, reports she is having formed stool, no abdominal pain. Clinically, she does not appear to have any active C. difficile colitis. Will get repeat stools- but she is not having diarrhea. Consideration can be made for sigmoidoscopy to further assess for CDifficile. - Ovarian cancer. S/P XLap hysterectomy with BSO and resection of pelvic masses , omentectomy. Per GS/VISUAL ARTS TEACHER. PLAN: - RACH - Obtain stool studies - Monitor stool output - Monitor labs - Consider sigmoidoscopy to further assess for CDifficile based on results of above - Pt seen and examined by Dr. Sims and myself and this note is written on his behalf (Alison Cantor) Physician Comments Patient seen and examined Agree with above Continue with current supportive care Monitor labs Case discussed with Dr. Benjamin I would probably stop the vancomycin on upon discharge (John Sims MD) Alison Cantor May 11, 2016 14:15 John Sims MD May 11, 2016 20:43
[2016-05-11] MEDS: PRAVASTATIN SOD 80 MG TAB PO SCH (20:33)
[2016-05-11] MEDS: amLODIPine BESYLATE 5 MG TAB PO SCH (20:33)
[2016-05-12] VITALS (7 sets, daily range): BP systolic 108–155; BP diastolic 57–71; PULSE 63–101; RESP 18–20; TEMP 96.4–99.8; O2SAT 93–96
[2016-05-12] MEDS: KETOROLAC TROMETHAMINE 30 MG/ML (IVP) VIAL IVP SCH ×2 (01:53→05:39)
[2016-05-12] MEDS: VANCOMYCIN 500 MG VIAL (FOR ORAL USE ONLY) PO SCH ×4 (01:53→21:10)
[2016-05-12] MEDS: D5-1/2 NS + KCL 20 MEQ INJ 1,000 ML IV SCH (01:54)
[2016-05-12] MEDS: PCA - TOTAL MG MORPHINE DELIVERED PER SHIFT SCH (05:39)
--- NOTE | 2016-05-12 08:14 | PD.ONC.PN ---
Subjective Subjective Remarks POD # 2 pt denies pain at this time states she is not using her APPELLATE CONFEREE much eating a little does not feel that hungry but passing a lot of flatus has been OOB to chair and using IS, Gonzalez D/C'd will get OOB today will D/C APPELLATE CONFEREE today and IVF to anticipate home tomorrow will consult case management for arrange nurse to help with wound care. Objective Data Date Time Temp Pulse Resp B/P Pulse Ox O2 Delivery O2 Flow Rate FiO2 05/12/16 05:39 18 05/12/16 04:00 97.2 63 18 108/63 93 05/12/16 02:53 18 05/12/16 02:00 99.1 05/12/16 00:00 99.8 101 18 155/71 93 05/11/16 20:43 94 05/11/16 20:37 18 05/11/16 20:00 97.3 84 18 146/65 95 05/11/16 16:30 97.8 91 20 163/69 90 05/11/16 14:00 16 05/11/16 13:30 80 147/68 05/11/16 12:00 96.8 84 20 171/74 96 05/11/16 09:08 96.5 89 18 176/75 98 Result Diagram: 05/11/16 0644 05/11/1644 Administered Medications Medications (Trade) Dose Ordered Sig/Sherly Route PRN Reason Start Time Stop Time Status Last Admin Dose Admin Amlodipine Besylate (Norvasc) 5 mg HS PO 05/10/16 21:00 05/11/16 20:33 Atenolol (Tenormin) 25 mg DAILY PO 05/11/16 09:00 05/11/16 09:10 Lisinopril (Prinivil) 40 mg BID PO 05/10/16 21:00 05/11/16 20:33 Pravastatin Sodium 80 mg 80 mg HS PO 05/10/16 21:00 05/11/16 20:33 Potassium Chloride/Dextrose/ Sod Cl (D5-1/2 NS + KCl 20 Meq Inj) 1,000 ml @ 100 mls/hr Q10H IV 05/10/16 12:00 05/12/16 01:54 IV Flush (NS Flush) 2 ml UNSCH PRN FLUSH FLUSH AFTER USING IV ACCESS 05/10/16 10:45 05/11/16 04:58 IV Flush (NS Flush) 2 ml BID FLUSH 05/10/16 21:00 05/10/16 20:26 Morphine Sulfate (Morphine 1 Mg/ ml APPELLATE CONFEREE) 30 mg UNSCH IV 05/10/16 10:45 05/10/16 11:45 APPELLATE CONFEREE Dosage Infused (Pha) 1 Q8HR .XX 05/10/16 14:00 05/11/16 20:37 Vancomycin HCl (VANCOMYCIN for oral use only) 125 mg Q6H PO 05/10/16 14:00 05/12/16 01:53 Objective Remarks GENERAL: Well-nourished, well-developed patient. SKIN: Warm and dry. HEAD: Normocephalic. EYES: No scleral icterus. No injection or drainage. CARDIOVASCULAR: Regular rate and rhythm without murmurs. RESPIRATORY: Breath sounds equal bilaterally. No accessory muscle use. GASTROINTESTINAL: abd dressing c/d/i EXTREMITIES: TEDs and SCDs MUSCULOSKELETAL: Adequate muscle tone. NEUROLOGICAL: No obvious focal deficit. Awake, alert, and oriented x3. PSYCHIATRIC: Appropriate mood and affect; insight and judgment normal. Assessment/Plan Problem List: (1) Ovarian cancer, bilateral Status: Acute Plan: final pathology is pending frozen section shown adenocarcinoma treatment recommendations based on final pathology (2) Post-operative state Status: Acute Plan: s/p XLap hyst with BSO and resection of pelvic masses, omentectomy post op orders in chart regular diet IS at bedside and pt using d/c APPELLATE CONFEREE d/c IVF Gonzalez d/c'd consult case management for nurse to help with wound care anticipate d/c home in next [address] Benjamin is in agreement with this plan of care. Bull Hensley May 12, 2016 08:14
[2016-05-12] MEDS: ATENOLOL 25 MG TAB PO SCH (10:18)
[2016-05-12] MEDS: LISINOPRIL 20 MG TAB PO SCH ×2 (10:19→21:10)
[2016-05-12] MEDS: SODIUM CHLORIDE 0.9% FLUSH 5 ML FLUSH FLUSH SCH ×2 (10:19→21:12)
--- NOTE | 2016-05-12 15:58 | HHI.GIFU ---
Subjective Remarks Resting in bed. Still not having any diarrhea. No nausea/vomiting. Tolerating diet. Mild abdominal discomfort she relates to her surgery. (Alison Cantor) Objective Vitals I&O Vital Signs Date Time Temp Pulse Resp B/P Pulse Ox O2 Delivery O2 Flow Rate FiO2 05/12/16 12:00 96.5 89 20 119/62 95 05/12/16 08:00 96.4 88 20 124/59 93 05/12/16 05:39 18 05/12/16 04:00 97.2 63 18 108/63 93 05/12/16 02:53 18 05/12/16 02:00 99.1 05/12/16 00:00 99.8 101 18 155/71 93 05/11/16 20:43 94 05/11/16 20:37 18 05/11/16 20:00 97.3 84 18 146/65 95 05/11/16 16:30 97.8 91 20 163/69 90 I/O 05/11/16 05/11/16 05/11/16 05/12/16 05/12/16 05/12/16 07:00 15:00 23:00 07:00 15:00 23:00 Intake Total 574 ml 822 ml 723 ml 762 ml Output Total 2700 ml 900 ml 500 ml Balance 574 ml -1878 ml -177 ml 262 ml Intake Oral 822 ml 480 ml 240 ml IV Total 574 ml 243 ml 522 ml Output Urine Total 2700 ml 900 ml 500 ml # Bowel Movements 0 Physical Exam HEENT: Normocephalic; atraumatic; no jaundice. CHEST: CTA CARDIAC: RRR ABDOMEN: Soft, nondistended, nontender; no hepatosplenomegaly; bowel sounds are present in all four quadrants. Abdominal drsg d/i EXTREMITIES: No clubbing, cyanosis, or edema. SKIN: Normal; no rash; no jaundice. STUDENT SPECIALIST: No focal deficits; alert and oriented times three. (Alison Cantor) Assessment and Plan Plan ASSESSMENT: - Pt with recent persistent CDiff infection. She was treated with flagyl/oral vancomycin as outpatient. She is currently not having any diarrhea, reports she is having formed stool, no abdominal pain. Clinically, she does not appear to have any active C. difficile colitis. She is not having diarrhea. Her WBC is normal. No fevers. Will continue Oral Vanco as inpatient and discontinue this at discharge if she continues to do well without diarrhea. - Ovarian cancer. S/P XLap hysterectomy with BSO and resection of pelvic masses , omentectomy. Per GS/DRYWALL STRIPPER HELPER. PLAN: - RACH - Cont. Oral Vanco as inpatient - If continues to do well without diarrhea, then okay to discontinue Vanco at discharge - GI will sign off, please reconsult as needed - Pt seen and examined by Dr. Sims and myself and this note is written on his behalf (Alison Cantor) Physician Comments Patient seen and examined Agree with above Continue with current supportive care Monitor labs We will sign off (John Sims MD) Alison Cantor May 12, 2016 15:58 John Sims MD May 12, 2016 20:51
[2016-05-12] MEDS: PRAVASTATIN SOD 80 MG TAB PO SCH (21:10)
[2016-05-12] MEDS: amLODIPine BESYLATE 5 MG TAB PO SCH (21:11)
[2016-05-13] VITALS: BP 129/69; PULSE 100; RESP 16; TEMP 97.4; O2SAT 95
[2016-05-13] MEDS: VANCOMYCIN 500 MG VIAL (FOR ORAL USE ONLY) PO SCH (02:00)
[2016-05-13 04:00] VITALS: BP 123/65; PULSE 92; RESP 16; TEMP 96.7; O2SAT 94
[2016-05-13] MEDS ORDERED: CALCIUM CARBONATE 500 MG CHEWABLE TAB CHEW PRN (05:45)
[2016-05-13] MEDS ORDERED: OXYC1TAB63 PO (07:13)
[2016-05-13 08:00] VITALS: BP 150/66; PULSE 99; RESP 16; TEMP 96.7; O2SAT 94
[2016-05-13] MEDS: ATENOLOL 25 MG TAB PO SCH (10:35)
[2016-05-13] MEDS: LISINOPRIL 20 MG TAB PO SCH (10:38)
--- NOTE | 2016-05-14 15:04 | MB ---
cc: MI WEN MD, JASON M.D. BESONG, GEORGE T. M.D. DATE OF CONSULTATION: 05/14/2016 Re: Phone conversation with Britany Chávez I had the opportunity to speak with the daughter of Britany Chávez last night at approximately 10:30 p.m. as Britany Ramon was discharged from the hospital being post-op day #3 from exploratory laparotomy for ovarian cancer surgery. At home her daughter was concerned that Britany Chávez had diarrhea. 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 She had no GI symptoms while in the hospital. Also she had some sense of esophageal irritation or heartburn that she thinks was due to irritation from taking medication. Otherwise she had no fevers, she was hemodynamically stable, a little bit of nausea, one episode of emesis, but was at that time able to keep liquids down. She was counseled that if her symptoms worsened to present to the emergency room. I did not think it was likely that she suddenly had an active Clostridium difficile infection, it was probably resolution of a postoperative ileus where there is often malabsorption and the initial return of bowel function is often abnormal, loose stools, which is hopeful that it would improve. I also thought that the irritation from medication in the throat would also improve, but she is instructed to present to the emergency room if she did not improve. Her daughter also asked regarding home health which was set up by us and the dependency case manager prior to hospital discharge but they had not yet heard from the home health agency and we agreed to try to check on that. I had the opportunity now to speak with Britany Chávez today in follow-up to last night's conversation. She states that she is feeling much better, her stomach has settled, she has not had a bowel movement since 9 o'clock this morning and her bowel function was more normal. The irritation in her throat has completely resolved. Furthermore, the home health agency nurse did come out and see her and just finished up with her approximately half an hour ago and her assessment was that she was doing well. Discussion ensued. Britany Chávez was grateful for the care and seems to be feeling much better. Will continue home health nursing and see her back as scheduled in 2 weeks. She is to contact our office should she have any additional problems or concerns. MD KATERINA Acosta /2:03 PM /2:49 PM
--- NOTE | 2016-05-19 19:29 | MD ---
cc: RIGO JOSEPH M.D., KELLY L. MD HARMON, JASON M.D. SULEIMAN, SAUD E. M.D. ADMISSION DATE: 05/10/2016 DISCHARGE DATE: 05/13/2016 PROCEDURE 05/10/2016 Exploratory laparotomy, total abdominal hysterectomy, bilateral salpingo-oophorectomy, peritoneal biopsies, omentectomy, intraperitoneal washings. PREOPERATIVE DIAGNOSIS Pelvic mass. 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 No overt evidence of metastatic disease. HOSPITAL COURSE She did well during her hospital course such that by postop day #3 she was tolerating oral intake, voiding without difficulty, able to get out of bed and function to some level independently, hemodynamically stable, felt well, pain controlled and was anxious to go home. Ins and Outs/24 hours: 2307/4100. PHYSICAL EXAMINATION: VITAL SIGNS: She is afebrile, pulse 88-100, respirations 16-20, blood pressure 114-129/57-65, O2 saturations greater than equal to 95% while awake. Alert and oriented x3. LUNGS: Clear to auscultation and minimal rales at the bases. CARDIOVASCULAR: Regular rate and rhythm. ABDOMEN: Abdomen is soft. Midline incision clean and dry. Steri-Strips intact. BENCH MANAGER: No bleeding. EXTREMITIES: Nontender. ASSESSMENT Postop day #3 doing well in recovery. Preliminary pathology reviewed and with a followup discussion anticipated at the time of her postoperative check. Activities and restrictions discussed. Questions were answered. She is to resume prior medications. Prescription provided for Percocet. In keeping with recommendations from Gastroenterology, given that she is asymptomatic from a gastrointestinal standpoint she is probably a chronic carrier status for Clostridium difficile but does not need to be treated as a pathogen and we will discontinue vancomycin at the time of discharge as per their recommendations. PLAN Therefore discharge to home and followup. She is to contact our office to schedule followup to be scheduled in two weeks. She is to resume prior medications. A prescription provided for Percocet. Activities and restrictions reviewed. Anticipate discharge to home. MD MICHOACANO Acosta/BJJaylen /7:18 AM /7:10 PM
== END 2016-05-13 11:10 | disposition home health service (06) | DRG 738 ==
LOC: HSDC 05:48 → HSDI 10:59 → HOCB 12:48
PROVIDERS: ADMIT Obstetrics & Gynecology Gynecologic Oncology; ATTEND Obstetrics & Gynecology Gynecologic Oncology
PROC: 0UT70ZZ Resection of Bilateral Fallopian Tubes, Open Approach (ICD-10-PCS; 2016-05-10)
PROC: 0UT90ZZ Resection of Uterus, Open Approach (ICD-10-PCS; 2016-05-10)
PROC: 0UTC0ZZ Resection of Cervix, Open Approach (ICD-10-PCS; 2016-05-10)
PROC: 0DBS0ZZ (ICD-10-PCS; 2016-05-10)
PROC: 0DBW0ZX Excision of Peritoneum, Open Approach, Diagnostic (ICD-10-PCS; 2016-05-10)
PROC: 3E1M38X Irrigation of Peritoneal Cavity using Irrigating Substance, Percutaneous Approach, Diagnostic (ICD-10-PCS; 2016-05-10)
PROC: 0UT20ZZ Resection of Bilateral Ovaries, Open Approach (ICD-10-PCS; principal; 2016-05-10 07:29)
DX: C56.2 Malignant neoplasm of left ovary (principal); C56.1 Malignant neoplasm of right ovary; I10 Essential (primary) hypertension; E78.5 Hyperlipidemia, unspecified; R12 Heartburn; Z88.1 Allergy status to other antibiotic agents; Z87.19 Personal history of other diseases of the digestive system; Z87.891 Personal history of nicotine dependence; Z22.1 Carrier of other intestinal infectious diseases
CPT/HCPCS: 80053; 85025; 86850; 86900; 86901; 86920; 88112; 88305; 88307; 88329; 88331; 94150; J0131; J0690; J1100; J1644; J1885; J2250; J2270; J2405; J3010; J3480; J7040; J7050; J7120

== ENCOUNTER 2016-07-06 06:25 | Day surgery (SDC) | payer MEDICARE ==
[~2016-07-06] VITALS: Ht 154.9 cm; Wt 63.6 kg
[~2016-07-06 06:25] MED LIST changes: +OXYC1TAB63 PO
[2016-07-06 06:42] VITALS: BP 160/91; PULSE 84; RESP 20; TEMP 98.1; O2SAT 92
[2016-07-06] MEDS ORDERED: SODIUM CHLORIDE 0.9% 1000 ML IV SCH (07:00)
[2016-07-06] MEDS ORDERED: POVIDONE IODINE 5% (ANTISEPSIS KIT) 4 APPLICATIONS EACH NARE SCH (07:00)
[2016-07-06] MEDS ORDERED: ceFAZolin 2 GM PREMIX 50 ML - implanted port/tunneled catheter insertion IV SCH (07:00)
[2016-07-06] MEDS ORDERED: VANCOMYCIN 1000 MG/NS 250 ML - implanted port/tunneled catheter IV SCH ×2 (07:00)
[2016-07-06] MEDS ORDERED: CHLORHEXIDINE GLUCONATE 2 % 1 PACK (2 CLOTHS) TOPICAL SCH (07:00)
[2016-07-06] MEDS ORDERED: MIDAZOLAM HCL 2 MG/2 ML VIAL ONE (08:51)
[2016-07-06] MEDS ORDERED: LIDOCAINE 1%/EPINEPHrine 1:100,000 SOLN 20 ML VIAL ONE (09:10)
--- NOTE | 2016-07-06 09:44 | PD.RAD ---
Post Procedure Progress Note Pre Procedure Diagnosis: (1) Ovarian cancer, bilateral Post Procedure Diagnosis: (1) Ovarian cancer, bilateral Procedure Date: Jul 06, 2016 Supervising Radiologist: Thomas Camarillo Proceduralist/Assist: Anurag Verdugo RT(R), RT Ayden(R)() Anesthesia: Conscious Sedation Plan of Activity Patient to Unit: ROPU See PACS Report for procedural detail/treatment Central Venous Access Device Procedure 1 Right Internal Jugular Infusaport Placement single lumen Thomas Camarillo MD Jul 06, 2016 09:44
[2016-07-06] MEDS ORDERED: SODIUM CHLORIDE 0.9% FLUSH 5 ML FLUSH IVF PRN (09:45)
[2016-07-06] MEDS ORDERED: IOHEXOL 350 MG/ML 50 ML BTL (for RAD DIAG) IV ONE (09:47)
[2016-07-06 10:00] VITALS: BP 147/60; PULSE 88; RESP 18; TEMP 97.5; O2SAT 93
[2016-07-06 10:15] VITALS: BP 126/43; PULSE 83; RESP 18; O2SAT 91
--- NOTE | 2016-07-06 10:32 | RADRPT ---
EXAM DATE/TIME: 07/06/2016 09:04 [facility] COMPARISON: No previous studies available for comparison. INDICATIONS : Patient presents with ovarian cancer in need of port placement for chemotherapy treatment. MEDICAL HISTORY : Asthma Cataracts HTN Hx pneumonia Diverticulitis SURGICAL HISTORY : Exp. lap Ovarian mass resection Hysterectomy Omentectomy Appendectomy ENCOUNTER: Initial ACUITY: 2 months PAIN SCORE: 0/10 LOCATION: N/A FLUORO TIME: 3.9 minutes IMAGE SERIES: 1 SEDATION TIME: 30 minutes CONTRAST: 5 cc Omnipaque (iohexol) 350 ACCESS: Right internal jugular vein SEDATION: 1.) 2 mg midazolam (Versed) IV 2.) 100 mcg fentanyl (Sublimaze) IV Prophylactic antibiotics were administered with appropriate pre-procedure timing. Vancomycin within 2 hours of procedure, Ancef (or alternative) within 1 hour of procedure. DEVICE: 1. 8 [place] single lumen Bard Power Port PROCEDURE : 1. Continuous pulse oximetry and EKG monitoring. 2. Intravenous conscious sedation. 3. Ultrasound guidance for venous access. 4. Fluoroscopic guided implantable central venous port placement. The patient was placed supine. The neck was prepped in sterile fashion. Full sterile technique was u sed, including cap, mask, sterile gloves and gown, and a large sterile sheet. Hand hygiene and 2% ch lorhexidine Betadine was utilized per protocol for cutaneous antisepsis with appropriate dry time for site. The skin and subcutaneous tissues were infiltrated with local anesthetic solution. Under direct ultrasound guidance, central venous access was accomplished in the targeted vessel. The ultrasound images depicting access guidance were stored and saved to PACS for permanent record. A s ubcutaneous pocket was created using blunt dissection. The port was introduced to the pocket. The c atheter tubing was fed through a subcutaneous tunnel to the venotomy site. The catheter tubing was c ut to a suitable length and then was introduced through a valved Peel-Away sheath and positioned with catheter tubing tip at the cavo-atrial junction level. The pocket incision was closed with subcutic ular Vicryl suture. Steri-Strips were applied. The port was flushed and locked with heparin solutio n per protocol. Sterile dressing was applied to the site. The patient tolerated the procedure well. Conscious sedation was performed with the prescribed dosages and duration as above in the presence of an independent trained radiology nurse to assist in the monitoring of the patient. EKG and oximetry remained stable throughout the procedure. The patient tolerated the procedure well and there were no complications. The patient was sent to post anesthesia recovery in stable condition. CONCLUSION: Uncomplicated ultrasound and fluoroscopic guided implanted central venous port catheter placement as described in detail above. An 8 [place] Power port was placed. Thomas Camarillo MD on July 06, 2016 at 10:30 Board Certified Radiologist. This report was verified electronically.
[2016-07-06 10:45] VITALS: BP 152/59; PULSE 84; RESP 18; O2SAT 93
[2016-07-06 11:15] VITALS: BP 122/63; PULSE 80; RESP 16; O2SAT 98
== END 2016-07-06 12:10 | disposition home or self-care (01) ==
LOC: HROP 06:25 → HRIP 06:26 → HROP 12:10
PROVIDERS: ATTEND Obstetrics & Gynecology Gynecologic Oncology
DX: C56.1 Malignant neoplasm of right ovary (principal); C56.2 Malignant neoplasm of left ovary
CPT/HCPCS: 36561; 76937; 77001; 99152; 99153; C1769; C1788; J0690; J1642; J2250; J3010; J3370; J7030; J7050; Q9967; 77003